=== PATIENT | female | born 1980 | race Caucasian/White ===

== ENCOUNTER 2021-03-28 16:23 | Inpatient (IN) | payer OTHER ==
[2021-03-28 17:43] VITALS: BMI 33.3
[2021-03-28] MEDS ORDERED: BISMUTH SUBSALICYLATE 524 MG/30 ML PO PRN (21:52)
[2021-03-28] MEDS ORDERED: MENTHOL/PHENOL 1 EACH UD MM PRN (21:52)
[2021-03-28] MEDS ORDERED: chlordiazePOXIDE HCL 25 MG CAPSULE PO PRN (21:52)
[2021-03-28] MEDS ORDERED: MAG HYDROX/AL HYDROX/SIMETH 30 ML UNIT-DOSE CUP PO PRN (21:52)
[2021-03-28] MEDS ORDERED: MAGNESIUM CITRATE 300 ML BOTTLE PO PRN (21:52)
[2021-03-28] MEDS ORDERED: methaDONE HCL 10 MG TABLET (FOR DETOX USE ONLY) PO ONE (21:52)
[2021-03-28] MEDS ORDERED: ONDANSETRON *ODT* 4 MG TABLET SL PRN (21:52)
[2021-03-28] MEDS ORDERED: chlordiazePOXIDE HCL 25 MG CAPSULE PO ONE (21:52)
[2021-03-28] MEDS ORDERED: NICOTINE 10 MG CARTRIDGE (INHALER) IH PRN (21:52)
[2021-03-28] MEDS ORDERED: ACETAMINOPHEN 325 MG TABLET (FP) PO PRN (21:52)
[2021-03-28] MEDS ORDERED: LOPERAMIDE HCL 2 MG CAPSULE PO PRN (21:52)
[2021-03-28] MEDS ORDERED: MAGNESIUM HYDROX 2400MG/30ML ORAL SUSPENSION 30 ML CUP PO PRN (21:52)
[2021-03-28] MEDS: THIAMINE HCL 100 MG TABLET (FP) PO SCH (23:38)
[2021-03-28] MEDS: chlordiazePOXIDE HCL 25 MG CAPSULE PO SCH (23:39)
[2021-03-29] MEDS: chlordiazePOXIDE HCL 25 MG CAPSULE PO SCH ×4 (05:29→22:10)
[2021-03-29] MEDS ORDERED: methaDONE HCL 10 MG TABLET (FOR DETOX USE ONLY) ONE (09:22)
[2021-03-29] MEDS: PRENATAL VITAMINS W/ FOLIC ACID TABLET (FP) PO SCH (10:40)
[2021-03-29 11:38] LABS: CALCIUM 8.7 mg/dL (8.5-10.1)
[2021-03-29 11:39] LABS: ALBUMIN 3.2 g/dl (3.4-5.0); BLOOD UREA NITROGEN 15.2 mg/dL (7-18)
[2021-03-29 11:43] LABS: BILIRUBIN,TOTAL 0.4 mg/dL (0.2-1); HEMATOCRIT 40.3 % (32.4-45.2); HEMOGLOBIN 13.6 GM/dL (10.7-15.3); MCH 29.1 pg (25.7-33.7); MCHC 33.7 g/dl (32.0-36.0); MEAN CELL VOLUME 86.4 fl (80-96); MEAN PLT VOLUME 9.4 fl (7.5-11.1); PLATELET COUNT 291 10^3/uL (134-434); RBC 4.66 M/mm3 (3.60-5.2); RDW 13.7 % (11.6-15.6); TOT PROT 6.8 g/dl (6.4-8.2); WHITE BLOOD COUNT 5.1 K/mm3 (4.0-10.0)
[2021-03-29] MEDS: METHOCARBAMOL 500 MG TABLET PO PRN ×2 (18:18→22:12)
[2021-03-29] MEDS: hydrOXYzine PAMOATE 25 MG CAPSULE (FP) PO PRN ×2 (18:18→22:10)
[2021-03-29] MEDS: MELATONIN 5 MG TABLETS PO PRN (22:09)
[2021-03-29] MEDS: THIAMINE HCL 100 MG TABLET (FP) PO SCH (22:10)
[2021-03-30] MEDS: chlordiazePOXIDE HCL 25 MG CAPSULE PO SCH ×4 (05:42→22:15)
[2021-03-30] MEDS ORDERED: methaDONE HCL 10 MG TABLET (FOR DETOX USE ONLY) PO ONE (10:00)
[2021-03-30] MEDS: PRENATAL VITAMINS W/ FOLIC ACID TABLET (FP) PO SCH (10:29)
[2021-03-30] MEDS: METHOCARBAMOL 500 MG TABLET PO PRN ×2 (10:29→17:51)
[2021-03-30 10:58] LABS: EPI CELLS >36 /uL (0-25.1); HYALINE CASTS 8 /uL (0-3.1); URINE APPEARANCE CLOUDY; URINE BACTERIA >9,000 /uL (0-1359); URINE BILIRUBIN NEGATIVE (NEGATIVE); URINE COLOR YELLOW; URINE GLUCOSE (UA) NEGATIVE (NEGATIVE); URINE KETONE NEGATIVE (NEGATIVE); URINE LEUK ESTERASE NEGATIVE (NEGATIVE); URINE NITRITE POSITIVE (NEGATIVE); URINE PROTEIN NEGATIVE (NEGATIVE); URINE RBC 6 /uL (0-23.9); URINE UROBILINOGEN 0.2 mg/dL (0.2-1.0); URINE WBC 22 /uL (0-25.8)
[2021-03-30] MEDS ORDERED: FLU VACC QS2021-22(6MOS UP)/PF 60 MCG/0.5 ML SYRINGE IM ONE (12:00)
[2021-03-30] MEDS: hydrOXYzine PAMOATE 25 MG CAPSULE (FP) PO PRN ×2 (17:50→22:15)
[2021-03-30] MEDS: IBUPROFEN 400 MG TABLET (FP) PO PRN (17:51)
[2021-03-30] MEDS: THIAMINE HCL 100 MG TABLET (FP) PO SCH (22:15)
[2021-03-30] MEDS: MELATONIN 5 MG TABLETS PO PRN (22:15)
[2021-03-30] MEDS: SULFAMETHOXAZOLE/TRIMETHOPRIM 800MG/160MG D.S. TABLET PO SCH (22:15)
[2021-03-31] MEDS ORDERED: chlordiazePOXIDE HCL 10 MG CAPSULE PO PRN
[2021-03-31] MEDS: METHOCARBAMOL 500 MG TABLET PO PRN ×4 (06:08→21:59)
[2021-03-31] MEDS: chlordiazePOXIDE HCL 10 MG CAPSULE PO SCH ×4 (06:08→21:59)
[2021-03-31] MEDS ORDERED: methaDONE HCL 10 MG TABLET (FOR DETOX USE ONLY) ONE (09:41)
[2021-03-31] MEDS: hydrOXYzine PAMOATE 25 MG CAPSULE (FP) PO PRN ×3 (10:18→21:59)
[2021-03-31] MEDS: SULFAMETHOXAZOLE/TRIMETHOPRIM 800MG/160MG D.S. TABLET PO SCH ×2 (10:18→21:59)
[2021-03-31] MEDS: PRENATAL VITAMINS W/ FOLIC ACID TABLET (FP) PO SCH (10:19)
[2021-03-31] MEDS: IBUPROFEN 400 MG TABLET (FP) PO PRN (11:01)
[2021-03-31] MEDS: MELATONIN 5 MG TABLETS PO PRN (21:59)
[2021-03-31] MEDS: THIAMINE HCL 100 MG TABLET (FP) PO SCH (21:59)
[2021-04-01] MEDS: IBUPROFEN 400 MG TABLET (FP) PO PRN (05:51)
[2021-04-01] MEDS: chlordiazePOXIDE HCL 10 MG CAPSULE PO SCH ×2 (05:53→17:34)
[2021-04-01] MEDS ORDERED: ONDANSETRON *ODT* 4 MG TABLET SL ONE (10:00)
[2021-04-01] MEDS ORDERED: FAMOTIDINE 20 MG TABLET PO ONE (10:00)
[2021-04-01] MEDS ORDERED: methaDONE HCL 10 MG TABLET (FOR DETOX USE ONLY) PO ONE (10:00)
[2021-04-01] MEDS ORDERED: DICYCLOMINE HCL 10 MG CAPSULE PO ONE (10:00)
[2021-04-01] MEDS: hydrOXYzine PAMOATE 25 MG CAPSULE (FP) PO PRN ×2 (10:03→22:03)
[2021-04-01] MEDS: SULFAMETHOXAZOLE/TRIMETHOPRIM 800MG/160MG D.S. TABLET PO SCH ×2 (10:03→22:02)
[2021-04-01] MEDS: METHOCARBAMOL 500 MG TABLET PO PRN ×2 (10:03→22:03)
[2021-04-01] MEDS: PRENATAL VITAMINS W/ FOLIC ACID TABLET (FP) PO SCH (10:03)
[2021-04-01 10:09] LABS: SARS-CoV-2 NAA Not Detected (Not Detected)
[2021-04-01] MEDS: MELATONIN 5 MG TABLETS PO PRN (22:03)
[2021-04-01] MEDS: THIAMINE HCL 100 MG TABLET (FP) PO SCH (22:03)
[2021-04-02] MEDS ORDERED: chlordiazePOXIDE HCL 10 MG CAPSULE PO ONE (05:00)
[2021-04-02] MEDS: METHOCARBAMOL 500 MG TABLET PO PRN ×3 (05:45→22:44)
[2021-04-02] MEDS: ACETAMINOPHEN 325 MG TABLET (FP) PO PRN ×2 (05:45→18:25)
[2021-04-02] MEDS: PRENATAL VITAMINS W/ FOLIC ACID TABLET (FP) PO SCH (09:51)
[2021-04-02] MEDS: SULFAMETHOXAZOLE/TRIMETHOPRIM 800MG/160MG D.S. TABLET PO SCH ×2 (09:51→22:45)
[2021-04-02] MEDS: NICOTINE 21 MG/24 HOURS TOPICAL PATCH TD SCH (12:19)
[2021-04-02] MEDS: hydrOXYzine PAMOATE 25 MG CAPSULE (FP) PO PRN ×2 (18:25→22:45)
[2021-04-02] MEDS: MELATONIN 5 MG TABLETS PO PRN (22:44)
[2021-04-02] MEDS: THIAMINE HCL 100 MG TABLET (FP) PO SCH (22:45)
[2021-04-03 08:40] VITALS: BP 100/68; PULSE 61; TEMP 97.7
[2021-04-03] MEDS: PRENATAL VITAMINS W/ FOLIC ACID TABLET (FP) PO SCH (10:16)
[2021-04-03] MEDS: NICOTINE 21 MG/24 HOURS TOPICAL PATCH TD SCH ×2 (10:16→10:19)
[2021-04-03] MEDS: SULFAMETHOXAZOLE/TRIMETHOPRIM 800MG/160MG D.S. TABLET PO SCH (10:16)
[2021-04-03] MEDS: METHOCARBAMOL 500 MG TABLET PO PRN (10:17)
[2021-04-03] MEDS: ACETAMINOPHEN 325 MG TABLET (FP) PO PRN (11:03)
[2021-04-03] MEDS ORDERED: hydrOXYzine PAMOATE 50 MG CAPSULE (FP) PO PRN (12:19)
[2021-04-03] MEDS ORDERED: FLUoxetine HCL 20 MG CAPSULE PO SCH (12:30)
[2021-04-03] MEDS ORDERED: QUEtiapine FUMARATE 50 MG TABLET PO SCH (22:00)
== END 2021-04-03 12:19 | disposition other institution (70) | DRG 773 ==
LOC: YASAS 16:23 → Y6N 22:50
PROVIDERS: ADMIT Allergy & Immunology; ATTEND Allergy & Immunology
PROC: HZ2ZZZZ Detoxification Services for Substance Abuse Treatment (ICD-10-PCS; principal; 2021-03-28)
DX: F11.23 Opioid dependence with withdrawal (principal); F10.230 Alcohol dependence with withdrawal, uncomplicated; F13.230 Sedative, hypnotic or anxiolytic dependence with withdrawal, uncomplicated; F14.20 Cocaine dependence, uncomplicated; F12.20 Cannabis dependence, uncomplicated; F17.210 Nicotine dependence, cigarettes, uncomplicated; F19.280 Other psychoactive substance dependence with psychoactive substance-induced anxiety disorder; F19.282 Other psychoactive substance dependence with psychoactive substance-induced sleep disorder; F19.24 Other psychoactive substance dependence with psychoactive substance-induced mood disorder; N39.0 Urinary tract infection, site not specified; E66.9 Obesity, unspecified; Z68.33 Body mass index [BMI] 33.0-33.9, adult
CPT/HCPCS: 36415; 80053; 81003; 81025; 85027; 86780; 90686; 93005; 93010; C9803-CS; G0008; Q0162; U0003; U0005

== ENCOUNTER 2021-04-03 12:30 | Inpatient (IN) | payer OTHER ==
[2021-04-03] MEDS ORDERED: MAGNESIUM CITRATE 300 ML BOTTLE PO PRN (13:32)
[2021-04-03] MEDS ORDERED: LOPERAMIDE HCL 2 MG CAPSULE PO PRN (13:32)
[2021-04-03] MEDS ORDERED: NICOTINE POLACRILEX 4 MG GUM BUC PRN (13:32)
[2021-04-03] MEDS ORDERED: MAG HYDROX/AL HYDROX/SIMETH 30 ML UNIT-DOSE CUP PO PRN (13:32)
[2021-04-03] MEDS ORDERED: guaiFENesin 200 MG/10 ML 10 ML UNIT-DOSE CUPS PO PRN (13:32)
[2021-04-03] MEDS ORDERED: P-EPHED 60MG/TRIPROLIDI 2.5MG TABLET PO PRN (13:32)
[2021-04-03] MEDS ORDERED: NICOTINE 10 MG CARTRIDGE (INHALER) IH PRN (13:32)
[2021-04-03] MEDS ORDERED: MAGNESIUM HYDROX 2400MG/30ML ORAL SUSPENSION 30 ML CUP PO PRN (13:32)
[2021-04-03] MEDS: IBUPROFEN 400 MG TABLET (FP) PO PRN (16:06)
[2021-04-03] MEDS: FLUoxetine HCL 20 MG CAPSULE PO SCH (16:06)
[2021-04-03] MEDS: THIAMINE HCL 100 MG TABLET (FP) PO SCH (21:33)
[2021-04-03] MEDS: MELATONIN 5 MG TABLETS PO SCH (21:33)
[2021-04-03] MEDS: SULFAMETHOXAZOLE/TRIMETHOPRIM 800MG/160MG D.S. TABLET PO SCH (21:33)
[2021-04-03] MEDS: hydrOXYzine PAMOATE 25 MG CAPSULE (FP) PO PRN (21:33)
[2021-04-03] MEDS: QUEtiapine FUMARATE 50 MG TABLET PO SCH (21:33)
[2021-04-04] MEDS: IBUPROFEN 400 MG TABLET (FP) PO PRN (07:07)
[2021-04-04] MEDS: FLUoxetine HCL 20 MG CAPSULE PO SCH (10:51)
[2021-04-04] MEDS: NICOTINE 21 MG/24 HOURS TOPICAL PATCH TD SCH (10:51)
[2021-04-04] MEDS: PRENATAL VITAMINS W/ FOLIC ACID TABLET (FP) PO SCH (10:52)
[2021-04-04] MEDS: SULFAMETHOXAZOLE/TRIMETHOPRIM 800MG/160MG D.S. TABLET PO SCH ×2 (10:52→21:49)
[2021-04-04] MEDS: ACETAMINOPHEN 325 MG TABLET (FP) PO PRN (17:25)
[2021-04-04] MEDS: hydrOXYzine PAMOATE 25 MG CAPSULE (FP) PO PRN ×2 (17:27→21:49)
[2021-04-04] MEDS: cloNIDine HCL 0.1 MG TABLET PO PRN (19:19)
[2021-04-04] MEDS: METHOCARBAMOL 500 MG TABLET PO PRN (19:19)
[2021-04-04] MEDS: QUEtiapine FUMARATE 50 MG TABLET PO SCH (21:49)
[2021-04-04] MEDS: MELATONIN 5 MG TABLETS PO SCH (21:49)
[2021-04-04] MEDS: THIAMINE HCL 100 MG TABLET (FP) PO SCH (21:49)
[2021-04-05] MEDS: IBUPROFEN 400 MG TABLET (FP) PO PRN ×3 (01:25→17:32)
[2021-04-05] MEDS: PRENATAL VITAMINS W/ FOLIC ACID TABLET (FP) PO SCH (09:50)
[2021-04-05] MEDS: NICOTINE 21 MG/24 HOURS TOPICAL PATCH TD SCH (09:51)
[2021-04-05] MEDS: FLUoxetine HCL 20 MG CAPSULE PO SCH (09:51)
[2021-04-05] MEDS: SULFAMETHOXAZOLE/TRIMETHOPRIM 800MG/160MG D.S. TABLET PO SCH ×2 (09:51→22:17)
[2021-04-05] MEDS: METHOCARBAMOL 500 MG TABLET PO PRN (22:17)
[2021-04-05] MEDS: QUEtiapine FUMARATE 50 MG TABLET PO SCH (22:17)
[2021-04-05] MEDS: THIAMINE HCL 100 MG TABLET (FP) PO SCH (22:17)
[2021-04-05] MEDS: MELATONIN 5 MG TABLETS PO SCH (22:18)
[2021-04-05] MEDS: hydrOXYzine PAMOATE 25 MG CAPSULE (FP) PO PRN (22:18)
[2021-04-06] MEDS: IBUPROFEN 400 MG TABLET (FP) PO PRN ×3 (06:44→22:05)
[2021-04-06] MEDS: FLUoxetine HCL 20 MG CAPSULE PO SCH (10:25)
[2021-04-06] MEDS: SULFAMETHOXAZOLE/TRIMETHOPRIM 800MG/160MG D.S. TABLET PO SCH ×2 (10:25→22:04)
[2021-04-06] MEDS: PRENATAL VITAMINS W/ FOLIC ACID TABLET (FP) PO SCH (10:25)
[2021-04-06] MEDS: NICOTINE 21 MG/24 HOURS TOPICAL PATCH TD SCH (10:26)
[2021-04-06] MEDS: hydrOXYzine PAMOATE 25 MG CAPSULE (FP) PO PRN ×2 (10:27→22:04)
[2021-04-06] MEDS: METHOCARBAMOL 500 MG TABLET PO PRN ×2 (10:27→22:04)
[2021-04-06] MEDS: THIAMINE HCL 100 MG TABLET (FP) PO SCH (22:05)
[2021-04-06] MEDS: QUEtiapine FUMARATE 50 MG TABLET PO SCH (22:05)
[2021-04-06] MEDS: MELATONIN 5 MG TABLETS PO SCH (22:07)
[2021-04-07] MEDS: PRENATAL VITAMINS W/ FOLIC ACID TABLET (FP) PO SCH (10:27)
[2021-04-07] MEDS: FLUoxetine HCL 20 MG CAPSULE PO SCH (10:27)
[2021-04-07] MEDS: NICOTINE 21 MG/24 HOURS TOPICAL PATCH TD SCH (10:27)
[2021-04-07] MEDS: hydrOXYzine PAMOATE 25 MG CAPSULE (FP) PO PRN ×2 (10:27→21:39)
[2021-04-07] MEDS: METHOCARBAMOL 500 MG TABLET PO PRN ×2 (10:28→21:38)
[2021-04-07] MEDS: MELATONIN 5 MG TABLETS PO SCH (21:38)
[2021-04-07] MEDS: THIAMINE HCL 100 MG TABLET (FP) PO SCH (21:38)
[2021-04-07] MEDS: cloNIDine HCL 0.1 MG TABLET PO PRN (21:39)
[2021-04-07] MEDS: QUEtiapine FUMARATE 50 MG TABLET PO SCH (21:40)
[2021-04-08] MEDS: IBUPROFEN 400 MG TABLET (FP) PO PRN (05:03)
[2021-04-08] MEDS: NICOTINE 21 MG/24 HOURS TOPICAL PATCH TD SCH (10:21)
[2021-04-08] MEDS: PRENATAL VITAMINS W/ FOLIC ACID TABLET (FP) PO SCH (10:21)
[2021-04-08] MEDS: FLUoxetine HCL 20 MG CAPSULE PO SCH (10:21)
[2021-04-08] MEDS: METHOCARBAMOL 500 MG TABLET PO PRN ×2 (10:23→21:46)
[2021-04-08] MEDS ORDERED: BUPRENORPHINE/NALOXONE 2 MG/0.5 MG FILM PACKET SL ONE ×2 (14:15→18:00)
[2021-04-08] MEDS: THIAMINE HCL 100 MG TABLET (FP) PO SCH (21:46)
[2021-04-08] MEDS: MELATONIN 5 MG TABLETS PO SCH (21:46)
[2021-04-08] MEDS: hydrOXYzine PAMOATE 25 MG CAPSULE (FP) PO PRN (21:46)
[2021-04-08] MEDS: QUEtiapine FUMARATE 50 MG TABLET PO SCH (21:47)
[2021-04-09] MEDS ORDERED: BUPRENORPHINE/NALOXONE 2 MG/0.5 MG FILM PACKET SL SCH (10:00)
[2021-04-09] MEDS: FLUoxetine HCL 20 MG CAPSULE PO SCH (10:17)
[2021-04-09] MEDS: PRENATAL VITAMINS W/ FOLIC ACID TABLET (FP) PO SCH (10:17)
[2021-04-09] MEDS: BUPRENORPHINE/NALOXONE 2 MG/0.5 MG FILM PACKET SL SCH ×2 (10:17→17:48)
[2021-04-09] MEDS: NICOTINE 21 MG/24 HOURS TOPICAL PATCH TD SCH (10:17)
[2021-04-09] MEDS: THIAMINE HCL 100 MG TABLET (FP) PO SCH (21:33)
[2021-04-09] MEDS: METHOCARBAMOL 500 MG TABLET PO PRN (21:33)
[2021-04-09] MEDS: MELATONIN 5 MG TABLETS PO SCH (21:33)
[2021-04-09] MEDS: QUEtiapine FUMARATE 50 MG TABLET PO SCH (21:33)
[2021-04-10] MEDS: NICOTINE 21 MG/24 HOURS TOPICAL PATCH TD SCH (10:29)
[2021-04-10] MEDS: FLUoxetine HCL 20 MG CAPSULE PO SCH (10:31)
[2021-04-10] MEDS: BUPRENORPHINE/NALOXONE 2 MG/0.5 MG FILM PACKET SL SCH ×2 (10:32→17:54)
[2021-04-10] MEDS: PRENATAL VITAMINS W/ FOLIC ACID TABLET (FP) PO SCH (10:32)
[2021-04-10] MEDS: METHOCARBAMOL 500 MG TABLET PO PRN ×2 (10:34→21:45)
[2021-04-10] MEDS: hydrOXYzine PAMOATE 25 MG CAPSULE (FP) PO PRN ×2 (10:34→21:45)
[2021-04-10] MEDS: QUEtiapine FUMARATE 50 MG TABLET PO SCH (21:45)
[2021-04-10] MEDS: MELATONIN 5 MG TABLETS PO SCH (21:45)
[2021-04-10] MEDS: THIAMINE HCL 100 MG TABLET (FP) PO SCH (21:45)
[2021-04-11] MEDS: IBUPROFEN 400 MG TABLET (FP) PO PRN (06:14)
[2021-04-11] MEDS: METHOCARBAMOL 500 MG TABLET PO PRN ×2 (06:14→21:45)
[2021-04-11] MEDS: NICOTINE 21 MG/24 HOURS TOPICAL PATCH TD SCH (10:28)
[2021-04-11] MEDS: PRENATAL VITAMINS W/ FOLIC ACID TABLET (FP) PO SCH (10:28)
[2021-04-11] MEDS: BUPRENORPHINE/NALOXONE 2 MG/0.5 MG FILM PACKET SL SCH ×2 (10:29→18:05)
[2021-04-11] MEDS: FLUoxetine HCL 20 MG CAPSULE PO SCH (10:29)
[2021-04-11] MEDS: MELATONIN 5 MG TABLETS PO SCH (21:45)
[2021-04-11] MEDS: QUEtiapine FUMARATE 50 MG TABLET PO SCH (21:45)
[2021-04-11] MEDS: hydrOXYzine PAMOATE 25 MG CAPSULE (FP) PO PRN (21:45)
[2021-04-11] MEDS: cloNIDine HCL 0.1 MG TABLET PO PRN (21:45)
[2021-04-11] MEDS: THIAMINE HCL 100 MG TABLET (FP) PO SCH (21:45)
[2021-04-12] MEDS: IBUPROFEN 400 MG TABLET (FP) PO PRN (06:33)
[2021-04-12] MEDS: METHOCARBAMOL 500 MG TABLET PO PRN ×2 (06:33→21:52)
[2021-04-12] MEDS: NICOTINE 21 MG/24 HOURS TOPICAL PATCH TD SCH (09:32)
[2021-04-12] MEDS: PRENATAL VITAMINS W/ FOLIC ACID TABLET (FP) PO SCH (09:32)
[2021-04-12] MEDS: FLUoxetine HCL 20 MG CAPSULE PO SCH (09:33)
[2021-04-12] MEDS: ACETAMINOPHEN 325 MG TABLET (FP) PO PRN (09:33)
[2021-04-12] MEDS: BUPRENORPHINE/NALOXONE 2 MG/0.5 MG FILM PACKET SL SCH ×2 (09:33→17:47)
[2021-04-12] MEDS: THIAMINE HCL 100 MG TABLET (FP) PO SCH (21:52)
[2021-04-12] MEDS: QUEtiapine FUMARATE 50 MG TABLET PO SCH (21:52)
[2021-04-12] MEDS: hydrOXYzine PAMOATE 25 MG CAPSULE (FP) PO PRN (21:52)
[2021-04-12] MEDS: MELATONIN 5 MG TABLETS PO SCH (21:52)
[2021-04-13] MEDS: IBUPROFEN 400 MG TABLET (FP) PO PRN (08:52)
[2021-04-13] MEDS: METHOCARBAMOL 500 MG TABLET PO PRN ×3 (08:52→21:44)
[2021-04-13] MEDS: NICOTINE 21 MG/24 HOURS TOPICAL PATCH TD SCH (10:47)
[2021-04-13] MEDS: FLUoxetine HCL 20 MG CAPSULE PO SCH (10:47)
[2021-04-13] MEDS: PRENATAL VITAMINS W/ FOLIC ACID TABLET (FP) PO SCH (10:47)
[2021-04-13] MEDS: hydrOXYzine PAMOATE 25 MG CAPSULE (FP) PO PRN ×3 (10:47→21:44)
[2021-04-13] MEDS: BUPRENORPHINE/NALOXONE 2 MG/0.5 MG FILM PACKET SL SCH ×2 (10:47→17:53)
[2021-04-13] MEDS: MELATONIN 5 MG TABLETS PO SCH (21:44)
[2021-04-13] MEDS: THIAMINE HCL 100 MG TABLET (FP) PO SCH (21:44)
[2021-04-13] MEDS: QUEtiapine FUMARATE 50 MG TABLET PO SCH (21:44)
[2021-04-14] MEDS: METHOCARBAMOL 500 MG TABLET PO PRN ×2 (06:25→21:41)
[2021-04-14] MEDS: IBUPROFEN 400 MG TABLET (FP) PO PRN (06:25)
[2021-04-14] MEDS: hydrOXYzine PAMOATE 25 MG CAPSULE (FP) PO PRN ×2 (07:12→21:40)
[2021-04-14] MEDS: PRENATAL VITAMINS W/ FOLIC ACID TABLET (FP) PO SCH (10:18)
[2021-04-14] MEDS: FLUoxetine HCL 20 MG CAPSULE PO SCH (10:18)
[2021-04-14] MEDS: NICOTINE 21 MG/24 HOURS TOPICAL PATCH TD SCH (10:19)
[2021-04-14] MEDS: BUPRENORPHINE/NALOXONE 2 MG/0.5 MG FILM PACKET SL SCH (10:19)
[2021-04-14] MEDS ORDERED: BUPRENORPHINE/NALOXONE 4 MG/1 MG FILM PACKET SL ONE (18:00)
[2021-04-14] MEDS: MELATONIN 5 MG TABLETS PO SCH (21:40)
[2021-04-14] MEDS: QUEtiapine FUMARATE 50 MG TABLET PO SCH (21:41)
[2021-04-14] MEDS: THIAMINE HCL 100 MG TABLET (FP) PO SCH (21:41)
[2021-04-15] MEDS: BUPRENORPHINE/NALOXONE 4 MG/1 MG FILM PACKET SL SCH ×2 (06:19→16:08)
[2021-04-15] MEDS: METHOCARBAMOL 500 MG TABLET PO PRN ×2 (06:19→21:33)
[2021-04-15] MEDS: IBUPROFEN 400 MG TABLET (FP) PO PRN ×3 (06:19→21:33)
[2021-04-15] MEDS: FLUoxetine HCL 20 MG CAPSULE PO SCH (10:07)
[2021-04-15] MEDS: PRENATAL VITAMINS W/ FOLIC ACID TABLET (FP) PO SCH (10:07)
[2021-04-15] MEDS: NICOTINE 21 MG/24 HOURS TOPICAL PATCH TD SCH (10:07)
[2021-04-15] MEDS ORDERED: ARIPIPRAZOLE (ABILIFY MAINTENA) 400 MG DISPENSE SYRINGE IM ONE (13:30)
[2021-04-15] MEDS ORDERED: ARIPIPRAZOLE (ABILIFY MAINTENA) 400 MG VIAL IM ONE (14:30)
[2021-04-15] MEDS: QUEtiapine FUMARATE 50 MG TABLET PO SCH (21:32)
[2021-04-15] MEDS: hydrOXYzine PAMOATE 25 MG CAPSULE (FP) PO PRN (21:33)
[2021-04-15] MEDS: THIAMINE HCL 100 MG TABLET (FP) PO SCH (21:34)
[2021-04-15] MEDS: MELATONIN 5 MG TABLETS PO SCH (21:34)
[2021-04-16] MEDS: METHOCARBAMOL 500 MG TABLET PO PRN ×3 (06:09→21:27)
[2021-04-16] MEDS: BUPRENORPHINE/NALOXONE 4 MG/1 MG FILM PACKET SL SCH ×2 (06:11→16:06)
[2021-04-16] MEDS: PRENATAL VITAMINS W/ FOLIC ACID TABLET (FP) PO SCH (10:17)
[2021-04-16] MEDS: FLUoxetine HCL 20 MG CAPSULE PO SCH (10:17)
[2021-04-16] MEDS: NICOTINE 21 MG/24 HOURS TOPICAL PATCH TD SCH (10:17)
[2021-04-16] MEDS: IBUPROFEN 400 MG TABLET (FP) PO PRN (13:35)
[2021-04-16] MEDS: THIAMINE HCL 100 MG TABLET (FP) PO SCH (21:27)
[2021-04-16] MEDS: MELATONIN 5 MG TABLETS PO SCH (21:27)
[2021-04-16] MEDS: hydrOXYzine PAMOATE 25 MG CAPSULE (FP) PO PRN (21:27)
[2021-04-16] MEDS: QUEtiapine FUMARATE 50 MG TABLET PO SCH (21:27)
[2021-04-17] MEDS: METHOCARBAMOL 500 MG TABLET PO PRN (06:09)
[2021-04-17] MEDS: BUPRENORPHINE/NALOXONE 4 MG/1 MG FILM PACKET SL SCH (06:09)
[2021-04-17 07:49] VITALS: BP 133/94; PULSE 76; TEMP 97.2
[2021-04-17] MEDS: PRENATAL VITAMINS W/ FOLIC ACID TABLET (FP) PO SCH (10:37)
[2021-04-17] MEDS: NICOTINE 21 MG/24 HOURS TOPICAL PATCH TD SCH (10:37)
[2021-04-17] MEDS: FLUoxetine HCL 20 MG CAPSULE PO SCH (10:37)
== END 2021-04-17 10:46 | disposition home or self-care (01) | DRG 772 ==
LOC: YASAS 12:30 → Y5N 12:31
PROVIDERS: ADMIT Allergy & Immunology; ATTEND Allergy & Immunology
PROC: HZ42ZZZ Group Counseling for Substance Abuse Treatment, Cognitive-Behavioral (ICD-10-PCS; principal; 2021-04-03)
DX: F11.20 Opioid dependence, uncomplicated (principal); F10.20 Alcohol dependence, uncomplicated; F14.20 Cocaine dependence, uncomplicated; F13.20 Sedative, hypnotic or anxiolytic dependence, uncomplicated; F12.20 Cannabis dependence, uncomplicated; F17.210 Nicotine dependence, cigarettes, uncomplicated; F19.280 Other psychoactive substance dependence with psychoactive substance-induced anxiety disorder; F19.24 Other psychoactive substance dependence with psychoactive substance-induced mood disorder; F43.10 Post-traumatic stress disorder, unspecified; E66.9 Obesity, unspecified; Z68.30 Body mass index [BMI] 30.0-30.9, adult
CPT/HCPCS: J0735

== ENCOUNTER 2023-08-03 16:12 | Inpatient (IN) | payer OTHER ==
[2023-08-03 17:21] VITALS: BMI 22.0
[2023-08-03] MEDS ORDERED: LOPERAMIDE HCL 2 MG CAPSULE PO PRN (18:33)
[2023-08-03] MEDS ORDERED: guaiFENesin 600 MG TABLET.ER (FP) PO PRN (18:33)
[2023-08-03] MEDS ORDERED: MAGNESIUM HYDROX 2400MG/30ML ORAL SUSPENSION 30 ML CUP PO PRN (18:33)
[2023-08-03] MEDS ORDERED: BENZONATATE 200 MG CAPSULE PO PRN (18:33)
[2023-08-03] MEDS ORDERED: MAG HYDROX/AL HYDROX/SIMETH 30 ML UNIT-DOSE CUP PO PRN (18:33)
[2023-08-03] MEDS ORDERED: NALOXONE (NARCAN) HCL 4 MG/0.1 ML SPRAY NS PRN (18:33)
[2023-08-03] MEDS ORDERED: POLYETHYLENE GLYCOL (HEALTHYLAX) 3350 17 GM PACKET PO PRN (18:33)
[2023-08-03] MEDS ORDERED: IBUPROFEN 600 MG TABLET (FP) PO PRN (18:33)
[2023-08-03] MEDS ORDERED: ONDANSETRON *ODT* 4 MG TABLET SL PRN (18:33)
[2023-08-03] MEDS ORDERED: BENZOCAINE/MENTHOL (CHLORASEPTIC ) LOZENGE MM PRN (18:33)
[2023-08-03] MEDS ORDERED: BISMUTH SUBSALICYLATE 524 MG/30 ML PO PRN (18:33)
[2023-08-03] MEDS ORDERED: DICYCLOMINE HCL 10 MG CAPSULE PO PRN (18:33)
[2023-08-03] MEDS ORDERED: IBUPROFEN 400 MG TABLET (FP) PO PRN (18:33)
[2023-08-03] MEDS ORDERED: NALOXONE HCL 0.4 MG/ML VIAL IM PRN (18:33)
[2023-08-03] MEDS: methaDONE HCL 10 MG TABLET (FOR DETOX USE ONLY) PO ONE (19:11)
[2023-08-03] MEDS: levETIRAcetam 500 MG TABLET (FP) PO ONE (19:11)
[2023-08-03] MEDS: cloNIDine HCL 0.1 MG TABLET PO PRN (20:43)
[2023-08-03] MEDS: MELATONIN 5 MG TABLETS PO SCH (21:35)
[2023-08-03] MEDS: METHOCARBAMOL 500 MG TABLET PO PRN (21:36)
[2023-08-03] MEDS: THIAMINE 100 MG TABLET PO SCH (21:36)
[2023-08-03] MEDS: levETIRAcetam 500 MG TABLET (FP) PO SCH (21:36)
[2023-08-03] MEDS: clonazePAM 0.5 MG ODT TABLETS SL ONE (21:36)
[2023-08-04] MEDS: ACETAMINOPHEN 325 MG TABLET (FP) PO PRN (07:12)
[2023-08-04] MEDS: hydrOXYzine PAMOATE 25 MG CAPSULE (FP) PO PRN (07:12)
[2023-08-04] MEDS: PRENATAL VITAMINS W/ FOLIC ACID TABLET (FP) PO SCH (09:46)
[2023-08-04] MEDS: GABAPENTIN 100 MG CAPSULE PO SCH (11:25)
[2023-08-04] MEDS: FLUoxetine HCL 20 MG CAPSULE PO SCH (11:25)
[2023-08-04] MEDS: clonazePAM 0.5 MG ODT TABLETS SL SCH (11:25)
[2023-08-04] MEDS: lamoTRIgine 25 MG TABLET PO SCH (11:25)
[2023-08-04 11:40] LABS: CHLORIDE 106 mmol/L (98-107); POTASSIUM 3.7 mmol/L (3.5-5.1); SODIUM 142 mmol/L (136-145)
[2023-08-04 11:42] LABS: GLUCOSE,RANDOM 98 mg/dL (74-106)
[2023-08-04 11:44] LABS: ALBUMIN 2.9 g/dl (3.4-5.0); ANION GAP 10 mmol/L (4-13); CALCIUM 8.3 mg/dL (8.5-10.1); CO2 26 mmol/L (21-32)
[2023-08-04 11:45] LABS: SGOT/AST 7 U/L (15-37); SGPT/ALT 18 U/L (13-61)
[2023-08-04 11:46] LABS: CREATININE 0.8 mg/dL (0.55-1.3)
[2023-08-04 11:47] LABS: BILIRUBIN,TOTAL 0.3 mg/dL (0.2-1); TOT PROT 5.9 g/dl (6.4-8.2)
[2023-08-04 11:48] LABS: ALK PHOS 42 U/L (45-117)
[2023-08-04 11:51] LABS: HEMATOCRIT 34.1 % (32.4-45.2); HEMOGLOBIN 11.3 GM/dL (10.7-15.3); MCH 30.3 pg (25.7-33.7); MCHC 33.2 g/dl (32.0-36.0); MEAN CELL VOLUME 91.2 fl (80-96); MEAN PLT VOLUME 9.5 fl (7.5-11.1); PLATELET COUNT 355 10^3/uL (134-434); RBC 3.73 M/mm3 (3.60-5.2); RDW 14.2 % (11.6-15.6); WHITE BLOOD COUNT 7.5 K/mm3 (4.0-10.0)
[2023-08-04] MEDS: QUEtiapine FUMARATE 50 MG TABLET PO SCH (22:12)
[2023-08-05] MEDS: methaDONE HCL 10 MG TABLET (FOR DETOX USE ONLY) PO ONE (09:15)
[2023-08-05] MEDS: GABAPENTIN 100 MG CAPSULE PO ONE (11:13)
[2023-08-05] MEDS: QUEtiapine FUMARATE 100 MG TABLET (FP) PO SCH (22:03)
[2023-08-05] MEDS: GABAPENTIN 300 MG CAPSULE PO SCH (22:03)
[2023-08-07] MEDS: methaDONE HCL 10 MG TABLET (FOR DETOX USE ONLY) PO ONE (09:46)
[2023-08-07 11:13] LABS: HEMATOCRIT 34.3 % (32.4-45.2); HEMOGLOBIN 11.4 GM/dL (10.7-15.3); MCH 30.3 pg (25.7-33.7); MCHC 33.3 g/dl (32.0-36.0); MEAN PLT VOLUME 9.7 fl (7.5-11.1); PLATELET COUNT 299 10^3/uL (134-434); RBC 3.77 M/mm3 (3.60-5.2); RDW 14.7 % (11.6-15.6)
[2023-08-07 11:38] LABS: ANISOCYTOSIS 0; MACROCYTOSIS 0
[2023-08-07 12:10] LABS: POTASSIUM 4.4 mmol/L (3.5-5.1)
[2023-08-07 12:11] LABS: CALCIUM 8.3 mg/dL (8.5-10.1)
[2023-08-07 12:12] LABS: BLOOD UREA NITROGEN 15.3 mg/dL (7-18)
[2023-08-07 12:15] LABS: CREATININE 0.7 mg/dL (0.55-1.3)
[2023-08-08 08:59] VITALS: BP 115/69; PULSE 104; RESP 18; TEMP 98.4
== END 2023-08-08 09:17 | disposition home or self-care (01) | DRG 773 ==
LOC: YASAS 16:12 → Y3N 18:32
PROVIDERS: ADMIT Allergy & Immunology; ATTEND Surgery
PROC: HZ2ZZZZ Detoxification Services for Substance Abuse Treatment (ICD-10-PCS; principal; 2023-08-03)
DX: F11.23 Opioid dependence with withdrawal (principal); F14.20 Cocaine dependence, uncomplicated; F13.20 Sedative, hypnotic or anxiolytic dependence, uncomplicated; F17.210 Nicotine dependence, cigarettes, uncomplicated; F19.282 Other psychoactive substance dependence with psychoactive substance-induced sleep disorder; F19.280 Other psychoactive substance dependence with psychoactive substance-induced anxiety disorder; F19.24 Other psychoactive substance dependence with psychoactive substance-induced mood disorder; F41.8 Other specified anxiety disorders; Z59.02 Unsheltered homelessness
CPT/HCPCS: 36415; 80048; 80053; 80305; 80307; 81025; 85025; 85027; 86780; 93005; 93010